=== PATIENT | male | born 1965 | race Caucasian/White ===

== ENCOUNTER 2016-10-01 15:15 | Observation (INO) | payer OTHER ==
[~2016-10-01] VITALS: Ht 180.3 cm; Wt 125.0 kg
[~2016-10-01 15:15] MED LIST: ADVAIR 250/501 DISK IH; ALLEGRA ALLERG180 MG PO; ALLEGRA180 MG PO; ASPIRIN BUFFER325 MG PO; ASPIRIN EC325 MG PO; ATORVASTATIN CA20 MG PO; BISACODYL5 MG PO; CALCIUM 500 MG1 EAC1 PO; CITRATE OF MAG296 ML PO; COLACE100 MG PO; DICYCLOMINE HCL10 MG PO; ENDOCET 5-3251 EACH PO; FLECTOR 1.3%1 PATC1 TD; FLEXERIL10 MG PO; GLIMEPIRIDE2 MG PO; HYDROCODON-ACE1 EAC7 PO; Hydrodiuril,Oretic,E PO; KEFLEX500 MG PO; LISINOPRIL-HCT1 EAC3 PO; LO-DOSE ASPIRIN81 M1 PO; LOPRESSOR25 MG PO; METOPROLOL SUCC25 MG PO; MIRALAX17 GM PO; MOTRIN800 MG PO; MUPIROCIN 2%; NAPROSYN500 MG PO; NORCO 5/3251 TABLET PO; NORCO 7.5/321 TABLET PO; PANTOPRAZOLE SO40 MG PO; PROAIR HFA8.5 GM IH; PROTONIX40 MG PO; SKELAXIN800 MG PO; TYLENOL WITH C1 EACH PO; VALIUM5 MG PO; VITAMIN E200 UNI2 PO; ZYRTEC10 M2 PO
[2016-10-01 16:38] LABS: HEMATOCRIT 43.3 % (38.0-50.0); MCH 32.3 PG (29.0-34.0); MCHC 35.8 G/DL (30.0-36.0); MCV 90.2 FL (86-99); MEAN PLAT.VOLUME 10.6 uM^3 (9.0-12.4); PLATELET COUNT 265 K/uL (156-360); RBC DIS.WIDTH-CV 12.4 % (11.8-14.6); RBC DIS.WIDTH-SD 40.1 % (39-53); WHITE BLOOD COUNT 8.2 K/uL (4.1-10.2)
[2016-10-01 16:49] LABS: CHLORIDE 106 mEq/L (99-109); POTASSIUM 3.8 mEq/L (3.7-5.4); SODIUM 140 mEq/L (136-147)
[2016-10-01 16:51] LABS: GLUCOSE 122 mg/dL (70-99)
[2016-10-01 16:53] LABS: ANION GAP 10 MEQ/L (2-14)
[2016-10-01 16:55] LABS: GFR ESTIMATE (CALCULATED) > 59 mL/min/
[2016-10-01 16:56] LABS: UREA NITROGEN (BUN) 12 mg/dL (9-23)
[2016-10-01 16:59] LABS: TROP-I INTERPRETATION NEGATIVE; TROPONIN-I < 0.01 ng/mL (0.0-0.30)
[2016-10-01] MEDS ORDERED: CALCIUM 500 +1 EACH PO (20:28)
[2016-10-01] MEDS ORDERED: LIVALO1 MG PO (20:29)
[2016-10-01 21:06] LABS: D-DIMER ELISA 0.21 mg/L FEU (< 0.57)
[2016-10-01 23:03] VITALS: BP 126/84
[2016-10-01 23:13] LABS: TROP-I INTERPRETATION NEGATIVE; TROPONIN-I < 0.01 ng/mL (0.0-0.30)
[2016-10-02 04:58] LABS: TROP-I INTERPRETATION NEGATIVE; TROPONIN-I < 0.01 ng/mL (0.0-0.30)
[2016-10-02 05:00] VITALS: BP 123/76
[2016-10-02 07:56] VITALS: BP 125/88
[2016-10-02] MEDS ORDERED: ASPIR-LOW81 MG PO (17:21)
== END 2016-10-02 17:40 | disposition home or self-care (01) ==
LOC: EXP 15:15 → EME 15:15 → 2SOUTH 20:59 → EDOF 20:59 → 5WEST 20:59 → 2SOUTH 20:59 → EDOF 20:59 → 5WEST 21:48 → 2SOUTH 10-02 14:25
PROVIDERS: Family Medicine
PROC: 4A033BC Measurement of Arterial Pressure, Coronary, Percutaneous Approach (ICD-10-PCS; principal; 2016-10-02)
PROC: B2111ZZ Fluoroscopy of Multiple Coronary Arteries using Low Osmolar Contrast (ICD-10-PCS; principal; 2016-10-02)
PROC: 4A023N7 Measurement of Cardiac Sampling and Pressure, Left Heart, Percutaneous Approach (ICD-10-PCS; principal; 2016-10-02)
PROC: B2151ZZ Fluoroscopy of Left Heart using Low Osmolar Contrast (ICD-10-PCS; principal; 2016-10-02)
DX: I25.10 Atherosclerotic heart disease of native coronary artery without angina pectoris (principal); G47.33 Obstructive sleep apnea (adult) (pediatric); E66.9 Obesity, unspecified; R07.9 Chest pain, unspecified; R06.02 Shortness of breath; R00.2 Palpitations; R53.83 Other fatigue; E11.9 Type 2 diabetes mellitus without complications; I11.9 Hypertensive heart disease without heart failure; Z87.19 Personal history of other diseases of the digestive system; F17.210 Nicotine dependence, cigarettes, uncomplicated; Z82.49 Family history of ischemic heart disease and other diseases of the circulatory system; Z82.3 Family history of stroke; Z80.51 Family history of malignant neoplasm of kidney; Z88.8 Allergy status to other drugs, medicaments and biological substances; Z91.018 Allergy to other foods
CPT/HCPCS: 71020; 80048; 84484; 85027; 85347; 85379; 93005; 99281; 99285; C1769; C1887; G0378; J0153; J1644; J2250; J3010; J7050

== ENCOUNTER 2017-08-20 16:42 | Emergency (ER) | payer OTHER ==
[~2017-08-20] VITALS: Ht 180.3 cm; Wt 120.7 kg
[~2017-08-20 16:42] MED LIST changes: +ASPIR-LOW81 MG PO; +CALCIUM 500 +1 EACH PO; +LIVALO1 MG PO
[2017-08-20 18:00] LABS: HEMATOCRIT 43.2 % (38.0-50.0); HEMOGLOBIN 15.2 G/DL (12.5-16.6); MCH 32.5 PG (29.0-34.0); MCHC 35.2 G/DL (30.0-36.0); MCV 92.5 FL (86-99); PLATELET COUNT 278 K/uL (156-360); RBC DIS.WIDTH-CV 12.5 % (11.8-14.6); RBC DIS.WIDTH-SD 42.5 % (39-53); RED BLOOD COUNT 4.67 M/uL (4.00-5.50); WHITE BLOOD COUNT 14.1 K/uL (4.1-10.2)
[2017-08-20 18:11] LABS: CHLORIDE 104 mEq/L (99-109); POTASSIUM 3.9 mEq/L (3.7-5.4); SODIUM 139 mEq/L (136-147)
[2017-08-20 18:13] LABS: GLUCOSE 192 mg/dL (70-99); TOTAL PROTEIN 7.1 g/dL (6.4-8.3)
[2017-08-20 18:15] LABS: TOTAL BILIRUBIN 0.5 mg/dL (0.0-1.0)
[2017-08-20 18:16] LABS: ALKALINE PHOSPHATASE 49 IU/L (3-129)
[2017-08-20 18:17] LABS: CREATININE 0.9 mg/dL (0.6-1.3); GFR ESTIMATE (CALCULATED) > 59 mL/min/ (58.99-99999)
[2017-08-20 18:18] LABS: AST (GOT) 16 IU/L (2-34); UREA NITROGEN (BUN) 12 mg/dL (9-23)
[2017-08-20 18:19] LABS: ALT (GPT) 32 IU/L (3-49)
[2017-08-20 18:20] LABS: LIPASE 41 U/L (1.0-51.0)
[2017-08-20 22:58] LABS: APPEARANCE CLEAR ((CLEAR)); BILIRUBIN NEGATIVE; BLOOD NEGATIVE; COLOR YELLOW ((YELLOW)); GLUCOSE (STRIP) NEGATIVE; KETONES NEGATIVE; LEUKOCYTES NEGATIVE; NITRITE NEGATIVE; PROTEIN (STRIP) NEGATIVE; UCUL ADDED? NO; UROBILINOGEN 0.2 MG/DL (0.2-1.0)
[2017-08-20] MEDS ORDERED: COLACE100 MG PO (23:08)
[2017-08-20] MEDS ORDERED: BENTYL10 MG PO (23:08)
[2017-08-20] MEDS ORDERED: ULTRAM50 MG PO (23:08)
[2017-08-20 23:40] VITALS: BP 125/84
[2017-08-20 23:42] LABS: SPECIFIC GRAVITY 1.067 (1.000-1.030)
== END 2017-08-20 23:40 | disposition home or self-care (01) ==
LOC: EME 16:42
DX: R10.30 Lower abdominal pain, unspecified (principal); K57.30 Diverticulosis of large intestine without perforation or abscess without bleeding; K76.0 Fatty (change of) liver, not elsewhere classified; R16.0 Hepatomegaly, not elsewhere classified; K21.9 Gastro-esophageal reflux disease without esophagitis; I10 Essential (primary) hypertension; J45.909 Unspecified asthma, uncomplicated; Z87.891 Personal history of nicotine dependence; Z90.49 Acquired absence of other specified parts of digestive tract
CPT/HCPCS: 74177; 80053; 81003; 83690; 85027; 99281; 99284; J3010; J7030

== ENCOUNTER 2017-11-18 20:41 | Observation (INO) | payer OTHER ==
[~2017-11-18] VITALS: Ht 180.3 cm; Wt 124.4 kg
[~2017-11-18 20:41] MED LIST changes: +BENTYL10 MG PO; -METOPROLOL SUCC25 MG PO; +METOPROLOL SUCC50 MG PO; +ULTRAM50 MG PO
[2017-11-18 21:07] LABS: MCH 32.8 PG (29.0-34.0); MCHC 34.9 G/DL (30.0-36.0); MCV 93.9 FL (86-99); PLATELET COUNT 265 K/uL (156-360); RBC DIS.WIDTH-CV 12.5 % (11.8-14.6); RED BLOOD COUNT 4.58 M/uL (4.00-5.50); WHITE BLOOD COUNT 7.9 K/uL (4.1-10.2)
[2017-11-18 21:19] LABS: CHLORIDE 111 mEq/L (99-109); POTASSIUM 4.1 mEq/L (3.7-5.4); SODIUM 144 mEq/L (136-147)
[2017-11-18 21:21] LABS: GLUCOSE 199 mg/dL (70-99)
[2017-11-18 21:24] LABS: CREATININE 0.9 mg/dL (0.6-1.3); GFR ESTIMATE (CALCULATED) > 59 mL/min/ (58.99-99999)
[2017-11-18 21:25] LABS: UREA NITROGEN (BUN) 18 mg/dL (9-23)
[2017-11-18 21:29] LABS: TROP-I INTERPRETATION NEGATIVE; TROPONIN-I 0.01 ng/mL (0.0-0.30)
[2017-11-18 22:21] LABS: D-DIMER ELISA < 150.00 ng/mLDDU (<230)
[2017-11-18] MEDS ORDERED: METFORMIN HCL500 MG PO (22:49)
[2017-11-18] MEDS ORDERED: LOPRESSOR50 MG PO (22:50)
[2017-11-18] MEDS ORDERED: ALLEGRA ALLERGY60 MG PO (22:53)
[2017-11-19 00:16] VITALS: BP 120/68
[2017-11-19 01:04] VITALS: BP 114/63
[2017-11-19 03:50] VITALS: BP 142/58
[2017-11-19 06:01] LABS: TROP-I INTERPRETATION NEGATIVE; TROPONIN-I 0.01 ng/mL (0.0-0.30)
[2017-11-19 07:14] VITALS: BP 123/78
[2017-11-19 10:57] LABS: TROP-I INTERPRETATION NEGATIVE; TROPONIN-I < 0.01 ng/mL (0.0-0.30)
[2017-11-19 11:00] VITALS: BP 130/82
[2017-11-19 11:45] LABS: HEMOGLOBIN A1c (GLYCOHEMOGLOB) 6.1 % (Below 5.7)
[2017-11-19 17:53] VITALS: BP 136/80
== END 2017-11-19 19:19 | disposition home or self-care (01) ==
LOC: EME 20:41 → EDOF 22:46 → 5WEST 22:46 → ENRESERV 22:53 → 5WEST 23:55
PROVIDERS: Emergency Medicine; Hospitalist; Nurse Practitioner Adult Health
DX: R07.89 Other chest pain (principal); R00.2 Palpitations; R42 Dizziness and giddiness; I25.10 Atherosclerotic heart disease of native coronary artery without angina pectoris; I11.9 Hypertensive heart disease without heart failure; G43.909 Migraine, unspecified, not intractable, without status migrainosus; E11.9 Type 2 diabetes mellitus without complications; K21.9 Gastro-esophageal reflux disease without esophagitis; E66.9 Obesity, unspecified; Z68.38 Body mass index [BMI] 38.0-38.9, adult; G47.33 Obstructive sleep apnea (adult) (pediatric); J45.909 Unspecified asthma, uncomplicated; E78.5 Hyperlipidemia, unspecified; F32.9 Major depressive disorder, single episode, unspecified; F41.9 Anxiety disorder, unspecified; Z79.4 Long term (current) use of insulin; Z87.891 Personal history of nicotine dependence
CPT/HCPCS: 71046; 80048; 82948; 83036; 84484; 85027; 85379; 87641; 93005; G0378; J1644